=== PATIENT | male | born 1970 | race Caucasian/White ===

== ENCOUNTER 2016-12-25 08:24 | Emergency (ER) | payer OTHER ==
[2016-12-25 08:28] VITALS: BP 120/84; PULSE 101; RESP 16; TEMP 98.4
--- NOTE | 2016-12-25 08:32 | ED ---
ENT HPI - General Chief complaint: Dental/Oral Stated complaint: Dental pain Time Seen by Provider: 12/25/16 08:29 Source: patient, RN notes reviewed Mode of arrival: ambulatory Limitations: no limitations - History of Present Illness Initial comments: 46-year-old male presents emergency Department chief complaint left-sided dental pain. Patient states started last has not improved. He notes some swelling today. Patient states he has no point with oral surgeon on . He states that last time he had infection he went there they cannot do any form because need to be on antibiotics.. Patient is requesting airbags at this time but denies any fever, chills. Denies any neck pain, neck stiffness or any headache at this time. MD complaint: tooth pain - Related Data Home Medications Medication Instructions Recorded Confirmed HYDROcodone/APAP 10-325MG [Perry 1 each PO Q4HR PRN 05/03/14 05/03/14 10] Simvastatin [Zocor] 20 mg PO HS 05/03/14 05/03/14 metFORMIN HCL 500 mg PO DAILY 05/03/14 05/03/14 Previous Rx's Medication Instructions Recorded Albuterol Inhaler [Ventolin Hfa 2 puff INHALATION Q4HR PRN #1 05/03/14 Inhaler] inhaler methylPREDNISolone Dose Pack 4 mg PO DIRECTED #21 package 05/03/14 [Medrol Dose Pack] Clindamycin HCl 300 mg PO Q6HR #40 cap 12/25/16 Allergies Allergy/AdvReac Type Severity Reaction Status Date / Time No Known Allergies Allergy Verified 12/25/16 08:28 Review of Systems ROS Statement: Those systems with pertinent positive or pertinent negative responses have been documented in the HPI. ROS Other: All systems not noted in ROS Statement are negative. Past Medical History Past Medical History: Diabetes Mellitus Additional Past Medical History / Comment(s): Multiple Sclerosis History of Any Multi-Drug Resistant Organisms: None Reported Additional Past Surgical History / Comment(s): nasal surgery x2, left hand, tumor removed left leg Past Psychological History: Anxiety, Depression Smoking Status: Current every day smoker Past Alcohol Use History: None Reported Past Drug Use History: None Reported General Exam Limitations: no limitations General appearance: alert, in no apparent distress Head exam: Present: atraumatic, normocephalic, normal inspection Eye exam: Present: normal appearance, PERRL, EOMI. Absent: scleral icterus, conjunctival injection, periorbital swelling ENT exam: Present: mucous membranes moist. Absent: normal exam, normal oropharynx (Edentulous, multiple dental caries, no drainable abscess noted but there is moderate swelling left side of face) Neck exam: Present: normal inspection, full ROM. Absent: tenderness, meningismus, lymphadenopathy Respiratory exam: Present: normal lung sounds bilaterally. Absent: respiratory distress, wheezes, rales, rhonchi, stridor Cardiovascular Exam: Present: regular rate, normal rhythm, normal heart sounds. Absent: systolic murmur, diastolic murmur, rubs, gallop, clicks Course Vital Signs 12/25/16 08:25 Temperature 98.4 F Pulse Rate 101 H Respiratory 16 Rate Blood Pressure 120/84 O2 Sat by Pulse 100 Oximetry Medical Decision Making - Medical Decision Making 46-year-old male presented for dental pain. Patient has dental infection will be started on clindamycin 300 mg 4 times a day he'll follow-up with oral surgeon as scheduled appointment return parameters were discussed. Disposition Clinical Impression: Toothache, Dental infection Disposition: HOME SELF-CARE Condition: Stable Instructions: Toothache (ED) Additional Instructions: Please return to the Emergency Department if symptoms worsen or any other concerns. Prescriptions: Clindamycin HCl 300 mg PO Q6HR #40 cap Referrals: Carter Webber Jr, DO [Primary Care Provider] - 1-2 days Time of Disposition: 08:32
== END 2016-12-25 08:53 | disposition home or self-care (01) ==
LOC: EC 08:24
DX: K04.7 Periapical abscess without sinus (principal); E11.9 Type 2 diabetes mellitus without complications; F17.200 Nicotine dependence, unspecified, uncomplicated; Z79.84 Long term (current) use of oral hypoglycemic drugs; Z79.899 Other long term (current) drug therapy
CPT/HCPCS: 99282

== ENCOUNTER → 2022-02-16 | Outpatient (CLI) | payer OTHER ==
--- NOTE | 2022-02-16 14:43 | XR ---
EXAMINATION TYPE: XR knee 4V LT DATE OF EXAM: 02/16/2022 COMPARISON: NONE HISTORY: 51-year-old male left knee pain extending down to the ankle. [id number] TECHNIQUE: 4 views FINDINGS: Small knee joint effusion. Mild anterior soft tissue swelling. Extensor mechanism appears i ntact. Patella remains a peripherally situated along the trochlear groove. No acute fracture, subluxa tion, dislocation. IMPRESSION: Small knee joint effusion and mild anterior soft tissue swelling. No acute osseous abnormality seen.
== END | disposition home or self-care (01) ==
LOC: RADXRMAIN 09:14
PROVIDERS: ATTEND Family Medicine
DX: M79.605 Pain in left leg (principal); M25.562 Pain in left knee; W13.2XXA Fall from, out of or through roof, initial encounter; Y92.69 Other specified industrial and construction area as the place of occurrence of the external cause